=== PATIENT | female | born 1985 | race Caucasian/White ===

== ENCOUNTER 2021-03-14 11:04 | Inpatient (IN) | payer OTHER ==
[~2021-03-14] VITALS: Ht 160 cm; Wt 73.0 kg
[2021-03-14] MEDS ORDERED: PRENATAL CAPLE1 EAC1 PO (14:35)
[2021-03-14] MEDS ORDERED: ZYRTEC10 M3 PO (14:35)
[2021-03-15] MEDS ORDERED: ECONAZOLE NITRA30 GM (09:03)
[2021-03-15] MEDS ORDERED: MOMETASONE FURO15 G2 (09:04)
== END 2021-03-16 14:06 | disposition home or self-care (01) | DRG 833 ==
LOC: NST 11:04 → LDR 12:21 → OB/GYN 03-15 18:45
PROVIDERS: ADMIT Obstetrics & Gynecology Maternal & Fetal Medicine; ATTEND Obstetrics & Gynecology Maternal & Fetal Medicine
PROC: 4A1HXCZ Monitoring of Products of Conception, Cardiac Rate, External Approach (ICD-10-PCS; principal; 2021-03-14)
DX: O60.03 Preterm labor without delivery, third trimester (principal); Z3A.31 31 weeks gestation of pregnancy; Z20.822 Contact with and (suspected) exposure to COVID-19

== ENCOUNTER 2021-04-05 11:22 | Outpatient (CLI) | payer OTHER ==
[~2021-04-05 11:22] MED LIST: ECONAZOLE NITRA30 GM; MOMETASONE FURO15 G2; PRENATAL CAPLE1 EAC1 PO; ZYRTEC10 M3 PO
== END 2021-04-05 12:15 | disposition home or self-care (01) ==
LOC: NST 11:22
PROVIDERS: ATTEND Obstetrics & Gynecology Maternal & Fetal Medicine
DX: Z34.83 Encounter for supervision of other normal pregnancy, third trimester (principal)

== ENCOUNTER 2021-04-30 12:00 | Inpatient (IN) | payer OTHER ==
[~2021-04-30] VITALS: Ht 160 cm; Wt 78.0 kg
== END 2021-05-09 13:57 | disposition home or self-care (01) | DRG 768 ==
LOC: LDR 05-07 10:22 → SURG-SUITE 05-07 18:58 → SURH 05-14 12:00
PROVIDERS: ADMIT Obstetrics & Gynecology; ATTEND Obstetrics & Gynecology
PROC: 10D07Z6 Extraction of Products of Conception, Vacuum, Via Natural or Artificial Opening (ICD-10-PCS; principal; 2021-05-07)
PROC: 0DQP0ZZ Repair Rectum, Open Approach (ICD-10-PCS; 2021-05-07)
PROC: 0W8NXZZ Division of Female Perineum, External Approach (ICD-10-PCS; 2021-05-07)
PROC: 4A1HXCZ Monitoring of Products of Conception, Cardiac Rate, External Approach (ICD-10-PCS; 2021-05-07)
DX: O70.3 Fourth degree perineal laceration during delivery (principal); Z37.0 Single live birth; O66.5 Attempted application of vacuum extractor and forceps; Z3A.39 39 weeks gestation of pregnancy; Z20.822 Contact with and (suspected) exposure to COVID-19